=== PATIENT | male | born 1990 | race Caucasian/White ===

== ENCOUNTER 2016-09-21 21:51 | Emergency (ER) | payer MEDICARE, OTHER ==
[2016-09-21] MEDS ORDERED: Sodium Chloride 0.9% 1,000 ML IV ONE (22:48)
[2016-09-21] MEDS ORDERED: Sodium Chloride 0.9% 1,000 ML ONE (23:07)
[2016-09-21 23:09] LABS: BASO % 0.4 % (0.0-2.0); EOS # 0.2 K/uL (0.0-0.7); EOS % 2.5 % (0.0-4.0); HEMATOCRIT 45.7 % (35.0-51.0); LYMPH # 0.9 K/uL (1.0-4.3); LYMPH % 10.5 % (20.0-40.0); MEAN CELL VOLUME 86.1 fL (80.0-94.0); MEAN CORPUSCULAR HEMOGLOBIN 28.9 pg (27.0-31.0); MEAN CORPUSCULAR HGB CONC 33.5 g/dL (33.0-37.0); MEAN PLATELET VOLUME 9.7 fL (7.2-11.7); MONO # 0.7 K/uL (0.0-0.8); NRBC % 0.1 % (0.0-2.0); RED CELL DISTRIBUTION WIDTH 13.4 % (11.5-14.5); WHITE BLOOD COUNT 8.3 K/uL (4.8-10.8)
[2016-09-21 23:14] LABS: RBC URINE < 1 /hpf (0-3); URINE BACTERIA RARE (<OCC); URINE BILIRUBIN NEGATIVE (NEGATIVE); URINE BLOOD NEGATIVE (NEGATIVE); URINE COLOR Yellow (YELLOW); URINE GLUCOSE (UA) NORMAL (Normal); URINE KETONE NEGATIVE (NEGATIVE); URINE LEUKOCYTE ESTERASE NEG Leu/uL (Negative); URINE PROTEIN NEGATIVE (NEGATIVE); URINE UROBILINOGEN NORMAL mg/dL (0.2-1.0); WBC URINE 2 /hpf (0-5)
[2016-09-21 23:15] LABS: CHLORIDE 100 mmol/L (98-107); POTASSIUM 3.9 mmol/L (3.6-5.2); SODIUM 140 mmol/L (132-148)
[2016-09-21 23:17] LABS: GFR AFRICAN-AMERICAN > 60
[2016-09-21 23:18] LABS: ALB/GLOB RATIO 1.2 (1.0-2.1); ALKALINE PHOSPHATASE 135 U/L (38-126); ALT/SGPT 55 U/L (21-72); AST/SGOT 39 U/L (17-59); BILIRUBIN,TOTAL 0.7 mg/dL (0.2-1.3); BLOOD UREA NITROGEN 16 mg/dL (9-20); CALCIUM 9.2 mg/dl (8.6-10.4); CARBON DIOXIDE 27 mmol/L (22-30); GLUCOSE,RANDOM 81 mg/dL (75-110); TOTAL PROTEIN 8.2 g/dL (6.3-8.3)
--- NOTE | 2016-09-21 23:34 | C.PDOC ---
History Of Present Illness A 25 year old male with a Hx of renal stones, presents to the ER c/o crampy left lower quadrant abdominal pain 3 days. Patient notes hard stool with tinged blood in stool. Patient denies nausea, vomiting, fever, chills, diarrhea, trauma , or any other complaints. Patient notes taking muscle relaxers from mother with no relief. Time Seen by Provider: 09/21/16 22:29 Chief Complaint (Nursing): Back Pain History Per: Patient History/Exam Limitations: no limitations Onset/Duration Of Symptoms: Days Current Symptoms Are (Timing): Still Present Severity: Mild Location Of Pain/Discomfort: LLQ Quality Of Discomfort: Cramping Recent travel outside of the [place]: No Past Medical History Reviewed: Historical Data, Nursing Documentation, Vital Signs Vital Signs: Last Vital Signs Temp 98.2 F 09/22/16 00:10 Pulse 92 H 09/22/16 00:10 Resp 18 09/22/16 00:10 BP 130/78 09/22/16 00:10 Pulse Ox 97 09/22/16 00:10 Family History: States: Unknown Family Hx - Social History Hx Tobacco Use: No Hx Alcohol Use: No Hx Substance Use: No - Immunization History Hx Tetanus Toxoid Vaccination: No Hx Influenza Vaccination: No Hx Pneumococcal Vaccination: No Review Of Systems Except As Marked, All Systems Reviewed And Found Negative. Constitutional: Negative for: Fever, Chills, Other (Trauma) Gastrointestinal: Positive for: Abdominal Pain (LLQ). Negative for: Nausea, Vomiting, Diarrhea Physical Exam - Physical Exam Appears: Non-toxic, No Acute Distress Skin: Warm, Dry Head: Atraumatic, Normacephalic Eye(s): bilateral: Normal Inspection Cardiovascular: Rhythm Regular, No Murmur Respiratory: Normal Breath Sounds, No Rales, No Rhonchi, No Wheezing Gastrointestinal/Abdominal: Soft, No Tenderness Rectal: Hemorrhoids (Small internal), Other (Bright brown stool) Back: Normal Inspection, No Vertebral Tenderness, No Paraspinal Tenderness Neurological/Psych: Oriented x3, Normal Speech, Normal Cognition ED Course And Treatment - Laboratory Results Result Diagrams: 09/21/16 23:04 09/21/16 23:04 Lab Interpretation: Normal (ua neg.) O2 Sat by Pulse Oximetry: 96 (Room air) Pulse Ox Interpretation: Normal - Radiology CXR: Interpreted by Me CXR Interpretation: Yes: No Acute Disease - Other Rad abd x 2 X-Ray: Interpreted by Me (+ increased stool L colon) Reevaluation Time: 23:52 Reassessment Condition: Improved Medical Decision Making Medical Decision Making: Impression: 25 y/o with LLQ cramping abd pain Plans: -X-Ray Obs series -Toradol -IV fluids -Reassess and disposition constipation, prob internal hemorroids normal HGB Disposition Doctor Will See Patient In The: Office Counseled Patient/Family Regarding: Studies Performed, Diagnosis - Disposition Referrals: [facility] [Outside] Disposition: HOME/ ROUTINE Disposition Time: 23:52 Condition: GOOD Additional Instructions: high fiber diet rich in fresh fruits and vegetables Drink a laxative now (Mag Citrate) and re-evaluate your abdominal discomfort after using the bathroom 2-3 times. colace 100 mg (stool softner) twice a day to help prevent constipation. Follow-up in our Clinic to have a referral to a Enterprise Architect to consider anoscopy/ colonoscopy Instructions: Constipation (ED), Rectal Bleeding (ED) Forms: Work Excuse - Clinical Impression Clinical Impression: Colicky LLQ abdominal pain - Scribe Statement The provider has reviewed the documentation as recorded by the Scribe Provider Attestation: Ramesh rodney All medical record entries made by the Scribe were at my direction and personally dictated by me. I have reviewed the chart and agree that the record accurately reflects my personal performance of the history, physical exam, medical decision making, and the department course for this patient. I have also personally directed, reviewed, and agree with the discharge instructions and disposition.
[2016-09-22 00:12] VITALS: BP 130/78; PULSE 92; RESP 18; TEMP 98.2
[2016-09-22 00:30] VITALS: O2SAT 96
--- NOTE | 2016-09-22 09:49 | RAD ---
PROCEDURE: Radiographs of the chest and abdomen (obstructive series) HISTORY: abd pain COMPARISON: No prior. TECHNIQUE: AP radiograph of the chest, with upright and supine radiographs of the abdomen. FINDINGS: CHEST: Lungs: Clear. Cardiovascular: Normal size heart. No pulmonary vascular congestion. Pleura: No pleural fluid. No pneumothorax. Other findings: None. ABDOMEN AND PELVIS: Bowel: Unremarkable bowel gas pattern. No evidence of mechanical obstruction. Free air: None. Bones: Unremarkable. Other findings: None. IMPRESSION: Unremarkable radiographs of chest and abdomen. No evidence of mechanical bowel obstruction.
== END 2016-09-22 00:12 | disposition home or self-care (01) ==
LOC: C.ER 21:51
DX: R10.32 Left lower quadrant pain (principal)
CPT/HCPCS: 74022; 80053; 81001; 83690; 85025; 96361; 96374; 99285; J1885; J7040